=== PATIENT | female | born 1990 | race Two or more races ===

== ENCOUNTER 2023-06-02 09:39 | Inpatient (IN) | payer OTHER ==
[~2023-06-02] VITALS: Ht 160 cm; Wt 3.6 kg
[2023-06-02] MEDS ORDERED: HYDROXYCHLOROQ200 MG PO (10:34)
[2023-06-02] MEDS ORDERED: PRENATAL TABLE1 EAC1 PO (10:35)
[2023-06-03 07:10] LABS: HEMATOCRIT 32.8 % (36.0-45.00); HEMOGLOBIN 11.2 g/dL (12.0-15.00); MEAN CORPUSCULAR HEMOGLOBIN 30.1 pg (27.00-32.0); MEAN CORPUSCULAR HGB CONC 34.2 g/dl (32.0-36.0); PLATELET COUNT 196 K/uL (150-450); RED BLOOD COUNT 3.72 M/uL (4.00-6.00); RED CELL DISTRIBUTION WIDTH 14.5 % (11.5-14.5)
== END 2023-06-04 13:43 | disposition home or self-care (01) | DRG 788 ==
LOC: LDR 09:39 → O/R 13:37 → OB/GYN 15:47
PROVIDERS: ADMIT Specialist; ATTEND Specialist
PROC: 4A1HXCZ Monitoring of Products of Conception, Cardiac Rate, External Approach (ICD-10-PCS; 2023-06-02)
PROC: 10D00Z1 Extraction of Products of Conception, Low, Open Approach (ICD-10-PCS; principal; 2023-06-02 12:30)
DX: O32.2XX0 Maternal care for transverse and oblique lie, not applicable or unspecified (principal); Z3A.38 38 weeks gestation of pregnancy; Z37.0 Single live birth; Z20.822 Contact with and (suspected) exposure to COVID-19